=== PATIENT | female | born 1995 | race Caucasian/White ===

== ENCOUNTER 2017-01-22 18:20 | Emergency (ER) | payer MEDICAID ==
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
[2017-01-22 19:05] LABS: URINE BILIRUBIN SMALL (NEGATIVE); URINE BLOOD NEGATIVE (NEGATIVE); URINE COLOR YELLOW; URINE GLUCOSE (UA) NEGATIVE (NEGATIVE); URINE KETONE NEGATIVE (NEGATIVE); URINE PROTEIN TRACE mg/dL (NEGATIVE)
[2017-01-22 19:06] LABS: URINE AMORPHOUS SEDIMENT FEW URATES (NONE SEEN); URINE BACTERIA 1+ /hpf (NONE SEEN); URINE EPITHELIAL CELLS MODERATE /lpf (FEW); URINE RBC 0-2 /hpf (0-5); URINE WBC 0-2 /hpf (0-5)
--- NOTE | 2017-01-23 09:53 | Diagnostic Imaging Report ---
Time: CT examination abdomen pelvis. HISTORY: Trauma Total DLP equals 535 CTDI equals 11.1 Multiple contiguous thin section of the abdomen pelvis obtained from lower thorax to the pubic symphysis without the administration of oral or intravenous contrast material. The study demonstrates normal aeration of lung parenchyma the bases. The liver parenchyma spleen and pancreas are normal. The adrenal glands are intact. There is evidence of previous cholecystectomy. No focal no free fluid collections noted. There is no evidence of obstructive uropathy or nephrolithiasis. The visualized bony structures demonstrate no evidence for lytic or blastic changes. The uterus is enlarged with fibroid infiltration. The urinary bladder is normal. IMPRESSION: Status post cholecystectomy otherwise unremarkable examination the abdomen pelvis. Findings:
--- NOTE | 2017-01-23 09:54 | Diagnostic Imaging Report ---
Exam cervical spine 5 views HISTORY: Trauma Findings: Multiple views of cervical spine reviewed. The study demonstrates vertebral bodies of normal height with preserved intervertebral disc spaces. There is no evidence of fracture dislocation or subluxation. The odontoid process is normal. No prevertebral soft tissue swelling is noted. IMPRESSION: Normal examination of cervical spine
== END 2017-01-22 20:30 | disposition home or self-care (01) ==
LOC: ER 18:20
DX: S16.1XXA Strain of muscle, fascia and tendon at neck level, initial encounter (principal); S80.12XA Contusion of left lower leg, initial encounter; S80.11XA Contusion of right lower leg, initial encounter; S30.0XXA Contusion of lower back and pelvis, initial encounter; E07.9 Disorder of thyroid, unspecified; Z90.49 Acquired absence of other specified parts of digestive tract; X58.XXXA Exposure to other specified factors, initial encounter; Y93.89 Activity, other specified; Y92.89 Other specified places as the place of occurrence of the external cause; Y99.8 Other external cause status
CPT/HCPCS: 72040-TC; 81001-TC; 81025-TC